=== PATIENT | male | born 1965 | race Caucasian/White ===

== ENCOUNTER 2018-04-16 11:56 | Emergency (ER) | payer MEDICAID ==
[~2018-04-16] VITALS: Ht 170.2 cm; Wt 72.7 kg
[2018-04-16 12:09] VITALS: Ht 170.2 cm; Wt 72.7 kg
[2018-04-16] MEDS ORDERED: HYDROCODONE/APAP (5/325) TAB PO ONE (13:00)
--- NOTE | 2018-04-16 13:20 | ERD ---
ER Documentation Chief Complaint Chief Complaint RT ANKLE D/T TO OFF LAST STAIR, REPORTS NECK PAIN BUT MOVING W/OUT GRIMACE HPI This is a 53-year-old male with a history of hypertension, diabetes mellitus and hypercholesteremia presents ED with right ankle injury status post ground-level fall yesterday. Patient states that yesterday he was walking down the stairs he accidentally inverted his right ankle. Patient had no loss of consciousness and did not strike head with this fall. Patient admits to swelling, painful range of motion and decreased range of motion due to pain. Patient admits to difficulty ambulating. Denies tingling, numbness, lack sensation ROS All systems reviewed and are negative except as per history of present illness. Allergies Allergies: Coded Allergies: No Known Allergy (Unverified , 01/18/16) PMhx/Soc History of Surgery: Yes (hernia repair.) Anesthesia Reaction: No Hx Neurological Disorder: No Hx Respiratory Disorders: No Hx Cardiac Disorders: No Hx Psychiatric Problems: No Hx Miscellaneous Medical Probl: Yes (GERD) Hx Alcohol Use: No Hx Substance Use: No Hx Tobacco Use: No FmHx Family History: No diabetes Physical Exam Vitals Vital Signs Date Temp Pulse Resp B/P (MAP) Pulse Ox O2 O2 Flow FiO2 Time Delivery Rate 04/16/18 98.5 122 18 150/89 98 12:09 (109) Physical Exam Const: No acute distress Head: Atraumatic Eyes: Normal Conjunctiva ENT: Normal External Ears, Nose and Mouth. Neck: Full range of motion. No meningismus. Resp: Clear to auscultation bilaterally Cardio: Regular rate and rhythm, no murmurs Ext: No cyanosis, Lower Extremity -right Skin: Swelling of right ankle, with ecchymosis, no laceration Compartments: Soft Motor: Full active range of motion hip/knee/ankle/foot Sensation: Intact to light touch FDWS/MF/LF/P surfaces. Bones: Tenderness palpation along the lateral and medial right ankle, pelvis/knee/proximal tibia/ foot Joints: No effusion or laxity Pulses/Perfusion: 2+ DP, Capillary refill < 2 seconds Neur: Awake and alert Psych: Normal Mood and Affect Results 24 hrs Current Medications Medications Dose Sig/Jennifer Start Time Status Last (Trade) Ordered Route PRN Stop Time Admin Dose Reason Admin 1 tab ONCE ONCE 04/16/18 DC 04/16/18 Acetaminophen PO 13:00 04/16/18 13:17 / 13:01 Hydrocodone Bitart ([place] (5/325)) Procedures/MDM EKG, MONITORS, & DIAGNOSTIC IMAGING: [place] [id number] Radiology Main Line: [phone] DIAGNOSTIC IMAGING REPORT Patient: ALLI PEREZ : 1965 Age: 53 Sex: M MR #: [id number] DOS: 04/16/18 1257 Ordering MD: BRITTANY LTOT PA-C Location: [facility] Room/Bed: PROCEDURE: XR Right Ankle CLINICAL INDICATION: Trauma, swelling TECHNIQUE: Standard 3 view radiographs were submitted. COMPARISON: None FINDINGS: Osseous structures: An oblique fracture is seen to the distal fibular metadiaphysis in which the distal fragment is displaced dorsally by 3 mm. The remaining visualized osseous elements appear intact. Joint spaces: Well maintained with no significant erosions or spurring evident. Soft tissues: There is lateral soft tissue swelling. IMPRESSION: Oblique fracture involving the distal right fibular metadiaphysis. Physician Ulices Date Time Electronically viewed and signed by Physician Ulices on 04/16/2018 13:43 RH/ CC: BRITTANY LOTT PA-C [id number] [place] [id number] Radiology Main Line: [phone] DIAGNOSTIC IMAGING REPORT Patient: ALLI PEREZ : 1965 Age: 53 Sex: M MR #: [id number] DOS: 04/16/18 1257 Ordering MD: BRITTANY LOTT PA-C Location: [facility] Room/Bed: PROCEDURE: XR Right Foot CLINICAL INDICATION: Trauma, swelling TECHNIQUE: AP, oblique, and lateral radiographs were submitted. COMPARISON: None FINDINGS: Osseous structures: There is an oblique fracture involving the distal right fibular metadiaphysis with the distal fragment displaced dorsally by 3 mm. The remaining osseous elements appear intact. Joint spaces: are well maintained, with no significant spurring, erosion or joint effusion evident. Soft tissues: appear unremarkable. IMPRESSION: 1. Oblique fracture involving the distal right fibular metadiaphysis with the distal fragment displaced dorsally by 3 mm. 2. Otherwise, unremarkable right foot series. Physician Ulices Date Time Electronically viewed and signed by Physician Ulices on 04/16/2018 13:44 RH/ CC: BRITTANY LOTT PA-C [id number] [place] [id number] Radiology Main Line: [phone] DIAGNOSTIC IMAGING REPORT Patient: ALLI PEREZ : 1965 Age: 53 Sex: M MR #: [id number] DOS: 04/16/18 1257 Ordering MD: BRITTANY LOTT PA-C Location: [facility] Room/Bed: PROCEDURE: XR Right Tibia-Fibula CLINICAL INDICATION: Pain, swelling TECHNIQUE: AP and lateral radiographs were submitted COMPARISON: None FINDINGS: Osseous structures: There is an oblique fracture of the distal right fibular metadiaphysis with the distal fragment displaced dorsally by 2-3 mm. The osseous elements otherwise appear intact. Joint spaces: are well maintained, with no significant spurring, erosion or joint effusion evident. Soft tissues: appear unremarkable. IMPRESSION: 1. Oblique fracture involving the distal right fibular metadiaphysis with the distal fragment displaced dorsally by 2-3 mm. 2. Otherwise, unremarkable right tibia-fibula. Physician Ulices Date Time Electronically viewed and signed by Physician Ulices on 04/16/2018 13:45 RH/ CC: BRITTANY LOTT PA-C [id number] PROCEDURES: Splint Type: Posterior short leg Extremity: Right lower extremity Indication: Fibular fracture Splint Assessment: Neurovascularly intact post splint placement with good fit. The patient was consented at bedside prior to splint application and states understanding of risks, benefits, and alternatives. The patient was neurovascularly intact prior to and status post application of the splint. The patient tolerated the procedure well and there were no complications ER COURSE: The patient was given NORCO The medication was well tolerated and the patient reports improvement in symptoms. The patient was stable throughout ED course. I kept the patient and/or family informed of laboratory and diagnostic imaging results throughout the emergency room course. The patient was promptly evaluated and a treatment plan was devised based on H&P and other data. This plan was discussed with the patient who agreed and had no further questions or concerns prior to discharge. MEDICAL DECISION MAKIN-year-old male presents ED with right ankle injury that occurred last night. X-rays remarkable for an oblique fracture of the right fibular metadiaphysis with the distal fragment displaced dorsally by 3 mm. Patient was placed in a posterior short leg splint and given crutches. Patient was advised to follow-up with micro computer specialist in the next 48 hours. Patient was given copies of x- ray findings as well as CD imaging. History and physical examination other data not consistent with emergent processes including but not limited to OPEN fracture, dislocation, tendon rupture, ischemia, neurovascular injury, compartment syndrome, septic joint, avascular necrosis, osteomyelitis, necrotizing fasciitis, septic joint, septic arthritis, or other emergent conditions. Patient's vitals are stable and can be managed outpatient with close follow-up. Advised patient to follow-up with primary care in the next 48 hours. Return to ED with any worsening symptoms. DISPOSITION PLAN: We discussed follow up with the patient's primary care doctor within 24 to 48 hours. Patient counseled regarding my diagnostic impression and care plan. Prior to discharge all questions answered. Pt agrees with treatment plan and understands strict return precautions. Precautionary instructions provided including instructions to return to the ER if not improving or for any worsening or changing symptoms or concerns. SPECIALIST FOLLOW UP RECOMMENDED:ORTHO Patient has been advised to follow up with primary care in 1-2 days. Disclaimer: Inadvertent spelling and grammatical errors are likely due to EHR/dictation software use and do not reflect on the overall quality of patient care. Also, please note that the electronic time recorded on this note does not necessarily reflect the actual time of the patient encounter. Blood Pressure Assessment: Patient's blood pressure was elevated (>120/80) but appears stable without evidence of hypertension emergency or urgency. The patient was counseled about the risks of hypertension and urged to pursue outpatient monitoring and therapy within a week with their primary care physician. Departure Diagnosis: Primary Impression: Closed right fibular fracture Encounter type: initial encounter Fibula location: distal Fracture morphology: unspecified fracture morphology Qualified Codes: S82.831A - Other fracture of upper and lower end of right fibula, initial encounter for closed fracture Condition: Stable Patient Instructions: Ankle Fracture (Distal Fibula), Closed Referrals: [facility] Additional Instructions: Patient advised follow-up with micro computer specialist in the next 48 hours. Patient advised to return to the ED immediately for new or worsening symptoms. Patient advised to follow up with primary care provider in the next 24-48 hours. Patient verbalized understanding and agrees with treatment plan and course of action. If patient has no primary care they may follow up with one of the community clinics listed on the following page or one of the options listed below [facility] + [facility] [address] [place] [id number] or [facility] [address] [place] [address] or [facility] [address] [place] [address] BRITTANY LOTT PA-C Apr 16, 2018 13:20
[2018-04-16] MEDS ORDERED: IBUP-1542 PO (14:06)
[2018-04-16] MEDS ORDERED: HYDR-4011 PO (14:06)
[2018-04-16 14:29] VITALS: BP 142/84; PULSE 65; RESP 18
== END 2018-04-16 14:29 | disposition home or self-care (01) ==
LOC: FTE 11:56
DX: S82.831A Other fracture of upper and lower end of right fibula, initial encounter for closed fracture (principal); I10 Essential (primary) hypertension; E11.9 Type 2 diabetes mellitus without complications; W10.9XXA Fall (on) (from) unspecified stairs and steps, initial encounter; Y92.9 Unspecified place or not applicable
CPT/HCPCS: 29515; 73590; 73610; 73630; Z7502; Z7610